=== PATIENT | female | born 1965 | race American Indian/Alaskan Native ===

== ENCOUNTER 2017-08-02 06:00 | Day surgery (SDC) | payer BC, MEDICAID ==
[~2017-08-02 06:00] MED LIST: LACTATED RINGERS 1,000 ML IV SCH; VANCOMYCIN PHARMACY TO DOSE IV SCH; VANCOMYCIN/0.45 NS 1 GM/250 ML 1 GM/250 ML BAG IV SCH
[2017-08-02] MEDS ORDERED: NACL BACTERIOSTATIC INFILTRATI ONE (06:30)
[2017-08-02] MEDS ORDERED: MARCAINE 0.25% INFILTRATI ONE ×2 (06:35→08:00)
[2017-08-02] MEDS ORDERED: XYLOCAINE 1% 20 mL ONE (06:35)
[2017-08-02] MEDS ORDERED: DECADRON ONE (06:36)
[2017-08-02] MEDS ORDERED: ANTIBIOTIC OINT TP ONE ×2 (06:36→08:36)
[2017-08-02] MEDS ORDERED: VERSED IV NR ×2 (07:20→08:00)
--- NOTE | 2017-08-02 07:20 | Anesthesia Day of Surgery ---
Anesthesia Day of Surgery - Day of Surgery Patient Examined: Yes Patient H&P Reviewed: Yes Patient is NPO: Yes
--- NOTE | 2017-08-02 07:20 | Anesthesia Consultation ---
Anesthesia Consult and Med Hx Date of service: 08/02/17 - Airway Anesthetic Teeth Evaluation: Good ROM Head & Neck: Adequate Mental/Hyoid Distance: Adequate Mallampati Class: Class II Intubation Access Assessment: Good - Pulmonary Exam CTA: Yes - Cardiac Exam Cardiac Exam: RRR - Pre-Operative Health Status ASA Pre-Surgery Classification: ASA2 Proposed Anesthetic Plan: MAC (bone spur, right elbow pain) - Pulmonary Hx Smoking: No Hx Sleep Apnea: No (MARTHA PRE SCREEN NEGATIVE) - Cardiovascular System Hx Hypertension: No - Central Nervous System Hx Back Pain: Yes - Other Systems Hx Cancer: No
[2017-08-02] MEDS ORDERED: SUBLIMAZE ONE (07:23)
[2017-08-02] MEDS ORDERED: DIPRIVAN 10 MG/ML IV ONE (07:24)
[2017-08-02] MEDS ORDERED: DECADRON IV ONE (08:00)
[2017-08-02] MEDS ORDERED: XYLOCAINE MPF 2% ONE (08:01)
[2017-08-02] MEDS ORDERED: XYLOCAINE 1% 20 mL INFILTRATI ONE (08:01)
[2017-08-02] MEDS: DILAUDID IV PRN ×2 (09:10→09:20)
[2017-08-02 10:28] VITALS: BP 142/76
--- NOTE | 2017-08-02 14:28 | Post Anesthesia Evaluation ---
- Post Anesthesia Evaluation Patient Participated: Yes Airway Patent: Yes Stable Respiratory Function: Yes Nausea/Vomiting: No Temp > 96.8F: Yes Pain Manageable: Yes Adequeate Hydration: Yes Anesthesia Complications: No
--- NOTE | 2017-08-03 08:07 | XRay Report ---
RIGHT FOOT RADIOGRAPHS INDICATION: Status post bunionectomy. COMPARISON: None similar. FINDINGS: AP, lateral and oblique right foot radiographs demonstrate bunionectomy changes at the first MTP joint and surrounding soft tissues. Severe first MTP joint space narrowing also noted with mild spurring. Moderate dorsal foot soft tissue swelling seen overlying the metatarsal heads. Flat foot not entirely excluded. CONCLUSION: Right first MTP joint degenerative and postsurgical changes with few other findings as dorsal foot soft tissue swelling, as described. Please correlate. Thank you for the opportunity to participate in this patient's care.
--- NOTE | 2017-08-11 03:53 | Operative Report ---
PREOPERATIVE DIAGNOSIS: Painful bunion, right foot. POSTOPERATIVE DIAGNOSIS: Painful bunion, right foot. SURGICAL PROCEDURE: Modified Hernandez bunionectomy, right foot. ESTIMATED BLOOD LOSS: Less than 10 mL. PROCEDURE IN DETAIL: The patient was brought into the operating room, placed on the operating table in supine position. Following intravenous sedation, the patient was given 2 grams of Ancef prophylactically. At this time, a well-padded pneumatic ankle tourniquet was placed to the 3 cm proximal to both the medial and lateral malleoli. At this time, 12 mL of a 1:1 mixture of 0.25% Marcaine plain plus 1% lidocaine plain were infiltrated into the affected site via Pickett block after cleansing with alcohol. At this time, the foot was then scrubbed, prepped and draped in the usual aseptic manner and the procedure was begun with a 6 cm linear longitudinal incision at the medial aspect of the first metatarsophalangeal joint. The area was deepened with both sharp and blunt dissection down to the level of the capsular structures, which was identified and a capsulorrhaphy was thus performed exposing the prominent bone of the first metatarsal head and base of the proximal phalanx. With the use of a sagittal saw, a 2 mm wedge of bone was removed from the medial aspect of the first metatarsal head and the dorsal aspect along with the medial area of the proximal phalanx. The area was contoured with a rotating football ever via medial approach. Lateral release of the first interspace was thus performed and there was noted to be a reduction in deformity with the foot ____. At this time, redundant capsular tissue was removed without incident and deep closure was performed with 3.0 Vicryl followed by a 4.0 subcutaneous closure followed by 4.0 running stitch subcuticularly. 1 mL of dexamethasone phosphate was infiltrated to the affected site and it was reapproximated and reinforced with Steri-Strips, bacitracin ointment, Adaptic, and sterile compression dressing. The pneumatic ankle tourniquet was deflated. Prompt hyperemic response was noted to all the affected toes of the affected foot. The patient tolerated the procedure and anesthesia well, will be transferred to recovery room with vital signs will be monitored. The patient will be discharged home with both written and oral postoperative instructions. JOB# [id number] DIEGO/KRISTA
== END 2017-08-02 10:25 | disposition home or self-care (01) ==
LOC: OR 06:00
PROVIDERS: ATTEND Podiatrist Foot & Ankle Surgery
DX: M21.611 Bunion of right foot (principal); M20.11 Hallux valgus (acquired), right foot; Z88.0 Allergy status to penicillin; Z88.5 Allergy status to narcotic agent; Z88.1 Allergy status to other antibiotic agents
CPT/HCPCS: 28292; 73630; 81025; 88304; 88311; J1100; J1170; J2250; J2704; J3010; J3370; J7120

== ENCOUNTER 2018-07-25 10:32 | Outpatient (CLI) | payer OTHER ==
--- NOTE | 2018-07-25 15:50 | Mammography Report ---
BILATERAL DIGITAL SCREENING MAMMOGRAM with CAD: 07/25/18 10:32:00 CLINICAL: Routine screening. COMPARISON:06/02/16 FINDINGS: The breasts are heterogeneously dense, which may obscure small masses. A left asymmetry on the MLO view requires additional imaging.No architectural distortion or suspicious calcifications.The right breast is negative. IMPRESSION: Left asymmetry requiring further workup. BI-RADS CATEGORY: 0 -- Additional Imaging Evaluation Required RECOMMENDATION: Recall for left mediolateral and spot magnification MLO views and left breast ultrasound if needed. ACR BI-RADS MAMMOGRAPHIC CODES: 0 = Needs additional imaging evaluation; 1 = Negative; 2 = Benign; 3 = Probably benign; 4 = Suspicious; 5 = Malignant; 6 = Known biopsy-proven malignancy COMMENT: 1. Dense breast tissue, i.e., adenosis, fibrocystic changes, etc., may obscure an underlying neoplasm. 2. Approximately 10% of cancers are not detected with mammography. 3. A negative mammography report should not delay biopsy if a clinically suspicious mass is present. COMMENT: Patient follow-up letters are generated via our [employer] application.
== END 2018-07-25 10:33 | disposition home or self-care (01) ==
LOC: SPVWC 10:32
PROVIDERS: ATTEND Internal Medicine
DX: Z12.31 Encounter for screening mammogram for malignant neoplasm of breast (principal)
CPT/HCPCS: 77067

== ENCOUNTER 2018-08-20 07:15 | Day surgery (SDC) | payer OTHER ==
[2018-08-20] MEDS ORDERED: WATER FOR IRRIG STERILE IR ONE (07:38)
[2018-08-20] MEDS ORDERED: WATER FOR IRRIG STERILE ONE (07:39)
[2018-08-20] MEDS ORDERED: NACL 0.9% 1000 ML 1,000 ML ONE ×2 (07:42→12:35)
--- NOTE | 2018-08-20 07:42 | Anesthesia Day of Surgery ---
Anesthesia Day of Surgery - Day of Surgery Patient Examined: Yes Patient H&P Reviewed: Yes Patient is NPO: Yes Beta Blockers: No
--- NOTE | 2018-08-20 07:43 | Anesthesia Consultation ---
Anesthesia Consult and Med Hx Date of service: 08/20/18 - Airway Anesthetic Teeth Evaluation: Good ROM Head & Neck: Adequate Mental/Hyoid Distance: Adequate Mallampati Class: Class II Intubation Access Assessment: Probably Good - Pulmonary Exam CTA: Yes - Cardiac Exam Cardiac Exam: No Murmur - Pre-Operative Health Status ASA Pre-Surgery Classification: ASA2 Proposed Anesthetic Plan: MAC - Pulmonary Hx Smoking: No Hx Sleep Apnea: No (MARTHA PRE SCREEN NEGATIVE) - Cardiovascular System Hx Hypertension: No - Central Nervous System Hx Back Pain: Yes - Other Systems Hx Cancer: No
[2018-08-20] MEDS ORDERED: DIPRIVAN 10 MG/ML IV ONE ×2 (07:45→07:46)
[2018-08-20 14:53] VITALS: BP 137/90
== END 2018-08-20 07:16 | disposition home or self-care (01) ==
LOC: GIO 07:15
PROVIDERS: ATTEND Internal Medicine Gastroenterology
DX: Z12.11 Encounter for screening for malignant neoplasm of colon (principal); K64.8 Other hemorrhoids; H40.9 Unspecified glaucoma; M19.90 Unspecified osteoarthritis, unspecified site; Z88.0 Allergy status to penicillin; Z88.5 Allergy status to narcotic agent; Z79.899 Other long term (current) drug therapy; Z98.51 Tubal ligation status; Z98.891 History of uterine scar from previous surgery; Z98.890 Other specified postprocedural states; Z88.8 Allergy status to other drugs, medicaments and biological substances
CPT/HCPCS: 45378; J2704; J7030